=== PATIENT | female | born 1975 | race Caucasian/White ===

== ENCOUNTER 2022-04-01 01:49 | Day surgery (SDC) | payer OTHER, SELFPAY ==
[2022-02-15 14:34] VITALS: BMI 25.2
--- NOTE | 2022-03-05 13:28 | PC.NURSE ---
PT CALLED WITH UPDATED DATE AND TIME FOR EGD/COLONOSCOPY. PT STATES UNDERSTANDING. PT CONFIRMS ALL MEDICAL HISTORY REMAINS THE SAME WITH NOTHING NEW TO ADD.
[2022-04-01] MEDS: LACTATED RINGERS 1,000 ML 150 ML IV CONT (12:47)
[2022-04-01 12:51] VITALS: BP 107/70; PULSE 64; RESP 18; TEMP 36.8; O2SAT 100
--- NOTE | 2022-04-01 12:59 | P.PNAN_ITS ---
Anes - Initial Pre Proc Eval Procedure: Operation Date: 04/01/22 13:45 Proposed Procedures p Esophagogastroduodenoscopy & Colonoscopy - Randal Damon MD Date/Time: 04/01/22 12:59 Surgeon: Randal Damon MD Pre Op Diagnosis: abnormal CT scan, family hx colon polyps, RUQP Patient Data Age: 47 Gender: F Height: 1.7 m Weight: 73.5 kg Last Vital Signs Temp 98.3 F 04/01/22 12:51 Pulse 64 04/01/22 12:51 Resp 18 04/01/22 12:51 BP 107/70 04/01/22 12:51 Pulse Ox 100 04/01/22 12:51 O2 Del Method Room Air 04/01/22 12:51 Allergies Allergy/AdvReac Type Severity Reaction Status Date / Time No Known Allergies Allergy Verified 04/01/22 12:50 Home Medications Medication Instructions Recorded Confirmed Type clonazepam 0.5 mg tablet 0.5 mg PO DAILY 02/05/22 02/15/22 History fluoxetine 20 mg capsule 20 mg PO DAILY 02/05/22 02/15/22 History Patient hx anesthesia problems: none Family hx anesthesia problems: none Results Review: All pre-operative results and documents have been reviewed as part of the pre- operative evaluation. [facility] Past Medical History Medical History (Updated 02/05/22 @ 15:13 by Alla Guardado APRN) Anxiety Continuous RUQ abdominal pain Gall bladder disease Family History Family History Mother Bladder cancer Social History Social History Smoking status: Never smoker Alcohol intake: current Alcohol use details: social Substance use: never Living arrangements: with family Spiritual care concerns: No Anes - Eval Final PreProcedure Day of Procedure 04/01/22 12:59 Patient weight: normal Heart: regular rate and rhythm Lungs: clear to auscultation Airway: Mallampati scale class II Neurological: alert and oriented Last oral intake: >/= 8 hours ASA classification: II Emergent: no Anesthetic plan: proceed Anesthesia type and monitoring: general GIVS and standard monitoring Results Review: All pre-operative results and documents have been reviewed as part of the pre- operative evaluation. Informed Consent: The patient's anesthetic plan and its attendant risks and benefits were discussed with the patient/family/POA. Questions were solicited and answers provided to the satisfaction of the patient/family/POA.
--- NOTE | 2022-04-01 13:39 | P.HP_ITS ---
History of Present Illness History of Present Illness Consent: Risks, benefits, and alternatives have been discussed and questions answered. Patient agrees to proceed with procedure. Chief complaint: abnormal CT scan, family hx colon polyps, RUQP Narrative: Renetta Isaacs is a 47 year old female Referred for investigation of persistent epigastric and upper abdominal pain. She also has a family history of colon cancer. He has had a cholecystectomy several years ago. She is now having pains that occur in the right upper quadrant, actually lateral to where she had pain with her gallbladder attacks. She will have a period of several days every few m onths which she will be very sore in the subcostal area on the right. She may feel better if she has a bowel movement but states that she never feels as though she is completely empty. She had been taking meloxicam and after she stopped it she felt better for a while. CT scan of the abdomen showed mild duodenal wall thickening. It Also showed possible thickening of the sigmoid and descending colon. Review of Systems Review of Systems: All systems reviewed & are unremarkable except as noted in HPI and below PMFSH Past Medical History Medical History Anxiety Continuous RUQ abdominal pain Gall bladder disease Family History Family History Mother Bladder cancer Social History Social History Smoking status: Never smoker Alcohol intake: current Alcohol use details: social Substance use: never Living arrangements: with family Spiritual care concerns: No Meds Home Medications and Allergies Home Medications Medication Instructions Recorded Confirmed Type clonazepam 0.5 mg tablet 0.5 mg PO DAILY 02/05/22 02/15/22 History fluoxetine 20 mg capsule 20 mg PO DAILY 02/05/22 02/15/22 History Allergies Allergy/AdvReac Type Severity Reaction Status Date / Time No Known Allergies Allergy Verified 04/01/22 12:50 Vital Signs Vital Signs - 24 hr 04/01/22 12:51 Temperature 36.8 C Pulse Rate 64 Respiratory Rate 18 Blood Pressure 107/70 Pulse Oximetry 100 Oxygen Delivery Room Air Exam Const: General: alert Orientation/consciousness: patient oriented x3 Resp: Auscultation: clear to auscultation bilaterally Cardio: Rhythm: regular rhythm GI: GI Palp: Yes Soft to palpation and No Tenderness to palpation present (GI) Neuro: General: patient oriented x3 Assessment and Plan Assessment and plan (1) Abnormal CT scan, gastrointestinal tract: Code(s): R93.3 - Abnormal findings on diagnostic imaging of other parts of digestive tract Status: Acute Assessment and Plan: Colonoscopy with possible biopsy or polypectomy or cautery or injection of substances. (2) Epigastric pain: Code(s): R10.13 - Epigastric pain Status: Acute Assessment and Plan: EGD with possible biopsy or dilatation or cautery.
[2022-04-01] MEDS: SIMETHICONE ORAL SUSPENSION 20 MG/0.3 ML 30 ML BOTTLE 0.6 ML IRRIGATION (14:23)
--- NOTE | 2022-04-01 14:28 | SUR.OPER ---
EGD START: 1407; END: 1410. COLONOSCOPY START: 1418; END: 1427.
[2022-04-01 14:29] VITALS: BP 99/42; PULSE 62; RESP 17; O2SAT 100
[2022-04-01 14:39] VITALS: BP 102/74; PULSE 61; RESP 20; O2SAT 100
[2022-04-01 14:49] VITALS: BP 101/49; PULSE 50; RESP 20; O2SAT 100
== END 2022-04-01 15:00 | disposition home or self-care (01) ==
PROVIDERS: Visit Provider Internal Medicine Gastroenterology
PROC: 0DJ08ZZ Inspection of Upper Intestinal Tract, Via Natural or Artificial Opening Endoscopic (ICD-10-PCS; CPT 43235; principal; 2022-04-01 13:45)
DX: Z12.11 Encounter for screening for malignant neoplasm of colon (principal); Z83.71 Family history of colonic polyps; R10.11 Right upper quadrant pain; F41.9 Anxiety disorder, unspecified; K82.9 Disease of gallbladder, unspecified; R10.13 Epigastric pain
CPT/HCPCS: 45378; 43239; 87081; 88305; J2704; J7120